=== PATIENT | male | born 1955 | race Caucasian/White ===

== ENCOUNTER 2017-10-05 05:45 | Day surgery (SDC) | payer OTHER ==
[2017-10-05] MEDS ORDERED: LIDOCAINE 1% 2 ML INJ ID PRN (06:38)
[2017-10-05] MEDS ORDERED: LR 1,000 ML IV ONE (06:38)
[2017-10-05] MEDS ORDERED: ceFAZolin 2 GM/DEXTROSE 100 ML IV ONE (06:38)
[2017-10-05] MEDS ORDERED: LIDOCAINE 2% JELLY 20 ML (UROJECT) ONE ×2 (06:48→07:17)
[2017-10-05] MEDS ORDERED: ceFAZolin 2 GM/SWFI 20 ML SYR IVP ONE (06:51)
[2017-10-05] MEDS ORDERED: ceFAZolin 2 GM/SWFI 2 GM/20 ML SYR IVP ONE (07:00)
--- NOTE | 2017-10-05 07:07 | PDANEPAE ---
ANE Past Medical History - Cardiovascular History Hx Hypertension: Yes Hx Arrhythmias: No Hx Chest Pain: No Hx Coronary Artery / Peripheral Vascular Disease: No Hx CHF / Valvular Disease: No Hx Palpitations: No - Pulmonary History Hx COPD: No Hx Asthma/Reactive Airway Disease: No Hx Recent Upper Respiratory Infection: No Hx Oxygen in Use at Home: No Hx Sleep Apnea: No Sleep Apnea Screening Result - Last Documented: Positive - Neurologic History Hx Cerebrovascular Accident: No Hx Seizures: No Hx Dementia: No - Endocrine History Hx Diabetes: No - Renal History Hx Renal Disorders: Yes Renal History Comment: UTI 07/2016. BPH. CURRENTLY SELF CATHING NEEDED - Liver History Hx Hepatic Disorders: No - Neurological & Psychiatric Hx Hx Neurological and Psychiatric Disorders: Yes Neurological / Psychiatric History Comment: ANXIETY - Cancer History Hx Cancer: No - Congenital Disorder History Hx Congenital Disorders: No - GI History Hx Gastrointestinal Disorders: Yes Gastrointestinal History Comment: HEARTBURN/REFLUX - Chronic Pain History Chronic Pain: Yes - Surgical History Prior Surgeries: LT TOTAL KNEE 07/2017. RT CATARACT ANE Review of Systems Review of Systems: - Exercise capacity METS (RN): 4 METS ANE Patient History - Allergies Allergies/Adverse Reactions: No Known Drug Allergies Allergy (Unknown, Verified 10/05/17 06:41) - Home Medications Home Medications: Atorvastatin Calcium DAILY06 09/15/17 [Last Taken 10/05/17 05:00] Flonase Nasal Mentor PRN 09/15/17 [Last Taken 09/28/17] HCTZ (*) DAILY06 09/15/17 [Last Taken 10/04/17] Ibuprofen DAILY 09/15/17 [Last Taken 10/02/17] LORAZEPAM PRN 09/15/17 [Last Taken 10/04/17] Lisinopril DAILY06 09/15/17 [Last Taken 10/05/17 05:00] Metoprolol Succinate DAILY AT 2PM 09/15/17 [Last Taken 10/04/17] Multivitamin (*) DAILY 09/15/17 [Last Taken 10/04/17] Omeprazole DAILY06 09/15/17 [Last Taken 10/05/17 05:00] - NPO status NPO Since - Liquids (Date): 10/04/17 NPO Since - Liquids (Time): 21:00 NPO Since - Solids (Date): 10/04/17 NPO Since - Solids (Time): 21:00 - Smoking Hx Smoking Status: Never smoked ANE Labs/Vital Signs - Vital Signs Blood Pressure: 139/89 Heart Rate: 70 Respiratory Rate: 16 O2 Sat (%): 94 Height: 180.34 cm Weight: 115.666 kg ANE Physical Exam - Airway Mallampati Score: Class 3 - ASA Status ASA Status: II ANE Anesthesia Plan Anesthesia Plan: general endotracheal anesthesia, GA w LMA
[2017-10-05] MEDS ORDERED: PROPOFOL 200 MG/20 ML VIAL ONE (07:12)
[2017-10-05] MEDS ORDERED: METOCLOPRAMIDE 10 MG/2 ML VIAL ONE (07:13)
[2017-10-05] MEDS ORDERED: fentaNYL 100 MCG/2 ML INJ ONE (07:13)
[2017-10-05] MEDS ORDERED: ONDANSETRON 4 MG/2 ML VIAL ONE (07:13)
[2017-10-05] MEDS ORDERED: LIDOCAINE 2% JELLY 5 ML TUBE ONE (07:43)
[2017-10-05] MEDS ORDERED: fentaNYL 100 MCG/2 ML INJ IVP PRN (08:28)
[2017-10-05] MEDS ORDERED: NALOXONE HCL 0.4 MG/ML INJ IVP PRN (08:28)
[2017-10-05] MEDS ORDERED: PROMETHAZINE HCL 25 MG/ML INJ IVP PRN (08:28)
[2017-10-05] MEDS ORDERED: LR 500 ML IV PRN (08:28)
--- NOTE | 2017-10-05 08:30 | POSTANESTH ---
Post Anesthetic Evaluation Cardiovascular Status: Normal, Stable Respiratory Status: Normal, Stable Level of Consciousness/Mental Status: Can Participate in Eval Pain Control: Adequate, Prn Tx Ordered Nausea/Vomiting Control: Adequate, Prn Tx Ordered Complications Possibly Related to Anesthesia: None Noted
--- NOTE | 2017-10-05 08:31 | PDHPUP ---
History & Physical Update H&P update statement: This history and physical update is based on an assessment of the patient which was completed after admission or registration (within 24 hours), but prior to the surgery/procedure. H&P update: no change in patient's condition since H&P completed
--- NOTE | 2017-10-05 08:37 | POSTOPPROG ---
Post Op Note Date of Operation: 10/05/17 Surgeon: Qian Horne (# [id number]) Anesthesia: LMA Pre-op Diagnosis: Bladder neck contracture Post-op Diagnosis: Bladder neck contracture Procedure: TURBNC Findings: See op note Inf/Abcess present in the surg proc area at time of surgery?: No EBL: Minimal Complications: None Specimen(s): Bladder neck
[2017-10-05 09:19] VITALS: BP 143/81
--- NOTE | 2017-10-05 12:29 | GOP ---
[f rep st] OPERATIVE REPORT DATE OF OPERATION: 10/05/2017 SURGEON: Qian Horne MD ANESTHESIA: Laryngeal mask. PREOPERATIVE DIAGNOSIS: 1. Fossa navicularis stricture. 2. Bladder neck contracture. POSTOPERATIVE DIAGNOSIS: 1. Fossa navicularis stricture. 2. Bladder neck contracture. PROCEDURE PERFORMED: 1. Urethral dilation of fossa navicularis stricture with Juan Pablo sounds. 2. Transurethral resection of bladder neck contracture. FINDINGS: 1. Mild fossa navicularis stricture. 2. Bladder neck contracture, as noted above. SPECIMENS: Bladder neck. ESTIMATED BLOOD LOSS: Minimal. INDICATIONS: This is a gentleman underwent [employer] photovaporization of the prostate previously. He has subsequently developed stricturing of the fossa navicularis, and more pertinent to the current situation, contracture of his bladder neck. He presents for operative management, particularly of the latter. The indications for the procedures, as well as potential risks and complications were discussed with the patient preoperatively. He appeared to understand, his questions were answered, and he wished to proceed. Written informed surgical consent was thereafter obtained. DESCRIPTION OF PROCEDURE: The patient was brought to the operating room, administered laryngeal mask anesthesia. He was carefully placed in the dorsal lithotomy position on the cystoscopic table. The genital area was sterilely prepped with Betadine scrub and paint, then draped in usual sterile fashion. Cystoscopy was initially performed with a 22-Bulgarian sheath and a 30-degree lens ; however, because of the fossa navicularis stricture, this required dilation of the anterior urethra carefully with Juan Pablo sounds up to 28-Bulgarian. The remainder of the anterior urethra was unremarkable. Posterior urethra revealed a well vaporized prostatic fossa, but with a bladder neck contracture that measured approximately 27-67-Txbbvn. I then removed the cystoscopic instruments and inserted the 24-Bulgarian resectoscopic sheath with visual obturator and the 30 degree lens. The beak of the scope was placed within the prostatic fossa. The IR Diagnostyx resectoscope and a Ward knife were then inserted. The Ward knife was used to make cuts through the bladder neck contracture at the 5 and 7 o'clock positions. This allowed for enough release of the bladder neck contracture that I was able to advance the scope into the bladder. The bladder was drained. The bladder was heavily trabeculated, but otherwise unremarkable. Ureteral orifices were normal in regards to shape and position along the trigone. A standard resecting loop was then used to fully resect the bladder neck contracture. All the specimen was obtained from the bladder and sent to Pathology. A button electrode was then used to fulgurate the mucosa for hemostatic purposes. At the conclusion of the procedure, the prostatic fossa and bladder neck were widely patent, ureteral orifices were preserved, and no resection and/or fulguration was performed distal to the verumontanum. The instruments were removed and an 18-Bulgarian 3-way Land catheter inserted with approximately 20 cc of sterile fluid placed in the balloon. The catheter irrigated manually and the return was clear. I decided to initiate continuous bladder irrigation for a short time postoperatively. This was connected to the catheter with normal saline. A drainage bag was connected to the catheter. The patient was then awakened, transferred to his bed, then taken to the recovery room. He tolerated the procedure well overall. COMPLICATIONS: None. DISPOSITION: He was transferred to the recovery room in stable condition. /[id number]/MODL MTDD
== END 2017-10-05 10:50 | disposition home or self-care (01) ==
LOC: FSGY 05:45
PROVIDERS: ATTEND Specialist
DX: N32.0 Bladder-neck obstruction (principal); N35.9 Urethral stricture, unspecified; N40.1 Benign prostatic hyperplasia with lower urinary tract symptoms; G62.9 Polyneuropathy, unspecified; R33.9 Retention of urine, unspecified; R39.198 Other difficulties with micturition
CPT/HCPCS: J0690; J2405; J2704; J2765; J3010

== ENCOUNTER 2018-05-28 09:46 | Observation (INO) | payer OTHER ==
--- NOTE | 2018-05-27 19:07 | GHP ---
HISTORY OF PRESENT ILLNESS: The patient is a 63-year-old male who presents with a long history of se brittany and progressive right knee pain. His pain is especially prominent in the medial compartment. Nori sims has had an injection which provided some relief, he has done some bracing. He remains an avid hike r. He has had successful replacement of his opposite knee. His left knee was replaced in July 15 in [place]. A right total knee arthroplasty is planned. PAST MEDICAL HISTORY: Remarkable for hypertension. PAST SURGICAL HISTORY: Includes cataract surgery, left total knee arthroplasty, prostate. ALLERGIES: No known drug allergies. MEDICATIONS: Include atorvastatin 40 mg p.o. daily, lisinopril 30 mg daily, hydrochlorothiazide 25 m g p.o. daily, omeprazole on a p.r.n. basis. SOCIAL HISTORY: He is a nonsmoker. REVIEW OF SYSTEMS: Positive from a cardiac standpoint for hypertension. PHYSICAL EXAM: GENERAL: The patient is a well-developed, well-nourished male in no apparent distres s. HEAD AND NECK: Normocephalic, atraumatic. CHEST: Clear. CARDIOVASCULAR: Regular rate and rhy thm. ABDOMEN: Soft. NEUROLOGICAL: He is alert and oriented x3. EXTREMITIES: Examination of the r ight knee shows a flexion contracture, he tends toward varus malalignment. He flexes to about 120 de grees. He has tenderness, especially along the medial compartment. NEUROVASCULAR: Appears intact. IMAGING STUDIES: X-rays as noted, show right knee tricompartment osteoarthritis, decreased joint spa ce, especially medial compartment, which is fdtu-mi-diks and varus malalignment. There is degenerati ve lipping, subchondral sclerosis. IMPRESSION: Severe right knee osteoarthritis. PLAN: Right total knee arthroplasty. Benefits and risks of surgery have been reviewed with the zoe ent. He understands that the risks include infection, damage to blood vessel or nerve, failure or lo osening of components and need for revision, blood clot in the leg or lungs, bleeding, and need for t ransfusion. He is already well aware of the rigorous nature of the rehabilitation. He has signed hi s consent form and wishes to proceed. /[id number]/MODL
[2018-05-28] MEDS ORDERED: ACETAMINOPHEN 325 MG TAB PO ONE (10:27)
[2018-05-28] MEDS ORDERED: ONDANSETRON 4 MG/2 ML VIAL IVP ONE (10:27)
[2018-05-28] MEDS ORDERED: ceFAZolin 2 GM/DEXTROSE 100 ML IV ONE (10:27)
[2018-05-28] MEDS ORDERED: DEXAMETHASONE 4 MG/ML VIAL IVP ONE (10:27)
[2018-05-28] MEDS ORDERED: GABAPENTIN 300 MG CAP PO ONE (10:27)
[2018-05-28] MEDS ORDERED: FAMOTIDINE 20 MG TAB PO ONE (10:27)
[2018-05-28] MEDS ORDERED: LR 1,000 ML IV ONE (10:28)
[2018-05-28] MEDS ORDERED: TRANEXAMIC ACID 2,000 MG in NS 100 ML IV ONE (11:00)
[2018-05-28] MEDS ORDERED: ROPIVACAINE 0.2% 80 MG, EPINEPHrine 0.2 MG, KETOROLAC TROMETHAMINE 30 MG in SYRINGE 0 ML IU ONE (11:00)
[2018-05-28] MEDS ORDERED: TRANEXAMIC ACID 1,000 MG in NS 100 ML IV ONE (11:00)
[2018-05-28] MEDS ORDERED: POVIDONE-IODINE 20 ML in SODIUM CL IRRIG SOLUTION 500 ML IRR ONE (11:00)
[2018-05-28] MEDS ORDERED: ceFAZolin 1 GM/5 ML SYR ONE (11:13)
[2018-05-28] MEDS ORDERED: MIDAZOLAM 2 MG/2 ML VIAL IVP ONE (11:42)
--- NOTE | 2018-05-28 11:44 | PDANEPAE ---
ANE Past Medical History - Cardiovascular History Hx Hypertension: Yes Hx Arrhythmias: No Hx Chest Pain: No Hx Coronary Artery / Peripheral Vascular Disease: No Hx CHF / Valvular Disease: No Hx Palpitations: No - Pulmonary History Hx COPD: No Hx Asthma/Reactive Airway Disease: No Hx Recent Upper Respiratory Infection: No Hx Oxygen in Use at Home: No Hx Sleep Apnea: No Sleep Apnea Screening Result - Last Documented: Positive Pulmonary History Comment: ANTHONY triggers - Neurologic History Hx Cerebrovascular Accident: No Hx Seizures: No Hx Dementia: No Neurologic History Comment: had transverse myletis as a teenager - Endocrine History Hx Diabetes: No - Renal History Hx Renal Disorders: Yes Renal History Comment: Hx UTI's. BPH, occasional self-caths - Liver History Hx Hepatic Disorders: No - Neurological & Psychiatric Hx Hx Neurological and Psychiatric Disorders: Yes Neurological / Psychiatric History Comment: ANXIETY - Cancer History Hx Cancer: No - Congenital Disorder History Hx Congenital Disorders: No - GI History Hx Gastrointestinal Disorders: Yes Gastrointestinal History Comment: GERD - Other Health History Other Health History: wears glasses for reading - Chronic Pain History Chronic Pain: No - Surgical History Prior Surgeries: TURP 09/2017. LT TOTAL KNEE 07/2017. RT CATARACT ANE Review of Systems Review of Systems: - Exercise capacity METS (RN): 4 METS ANE Patient History - Allergies Allergies/Adverse Reactions: No Known Drug Allergies Allergy (Verified 05/21/18 14:16) - Home Medications Home medications: home medication list seen and reviewed Home Medications: Atorvastatin Calcium [Lipitor 40 mg (*)] 60 mg PO DAILY #0 09/15/17 [Last Taken 10/05/17 05:00] Hydrochlorothiazide [HCTZ (*)] 25 mg PO DAILY #0 09/15/17 [Last Taken 05/27/18] Ibuprofen [Motrin (*)] 800 mg PO Q8HRS PRN #0 09/15/17 [Last Taken 1 Week Ago ~ 05/21/18] LORazepam [Ativan (*)] 0.5 mg PO HS PRN #0 09/15/17 [Last Taken 05/27/18] Lisinopril 30 mg PO DAILY #0 09/15/17 [Last Taken 1 Day Ago ~05/27/18] Multivitamins [Multivitamin (*)] 1 each PO DAILY #0 09/15/17 [Last Taken 1 Week Ago ~05/21/18] Omeprazole 20 mg PO DAILY #0 09/15/17 [Last Taken 05/28/18] Herbals/Supplements -Info Only 1 ea PO DAILY 05/16/18 [Last Taken Unknown] - NPO status NPO Status: no food or drink >8 hours NPO Since - Liquids (Date): 05/28/18 NPO Since - Liquids (Time): 07:00 NPO Since - Solids (Date): 05/27/18 NPO Since - Solids (Time): 18:00 - Smoking Hx Smoking Status: Never smoked - Family Anes Hx Family Hx Anesthesia Complications: none ANE Labs/Vital Signs - Vital Signs Vital Signs: reviewed preoperatively; see RN documention for details Blood Pressure: 115/96 Heart Rate: 68 Respiratory Rate: 18 O2 Sat (%): 96 Height: 180.34 cm Weight: 117.934 kg ANE Physical Exam - Airway Neck exam: FROM Mallampati Score: Class 2 Mouth exam: normal dental/mouth exam - Pulmonary Pulmonary: clear to auscultation - Cardiovascular Cardiovascular: regular rate and rhythym, no murmur, rub, or gallop - ASA Status ASA Status: II ANE Anesthesia Plan Anesthesia Plan: spinal Regional Anesthesia: single shot NB
--- NOTE | 2018-05-28 12:54 | PDHPUP ---
History & Physical Update H&P update statement: This history and physical update is based on an assessment of the patient which was completed after admission or registration (within 24 hours), but prior to the surgery/procedure. no change H&P update: no change in patient's condition since H&P completed (no change)
[2018-05-28] MEDS ORDERED: PROPOFOL/EMULSION 500 MG/50 ML BOTTLE IV ONE (13:05)
[2018-05-28] MEDS ORDERED: METOCLOPRAMIDE 10 MG/2 ML VIAL ONE (13:56)
[2018-05-28] MEDS ORDERED: RANITIDINE 50 MG/2 ML VIAL ONE (13:56)
[2018-05-28] MEDS ORDERED: PROPOFOL 200 MG/20 ML VIAL ONE (14:47)
[2018-05-28] MEDS ORDERED: ROPIVACAINE HCL 150 MG/30 ML INJ ONE (14:58)
[2018-05-28] MEDS ORDERED: PROMETHAZINE HCL 25 MG/ML INJ IVP PRN ×2 (15:22→15:42)
[2018-05-28] MEDS ORDERED: oxyCODONE IR 5 MG TAB PO PRN (15:22)
[2018-05-28] MEDS ORDERED: NALOXONE HCL 0.4 MG/ML INJ IVP PRN (15:22)
[2018-05-28] MEDS ORDERED: ACETAMINOPHEN 500 MG TAB PO PRN (15:22)
[2018-05-28] MEDS ORDERED: fentaNYL 100 MCG/2 ML INJ IVP PRN (15:22)
[2018-05-28] MEDS ORDERED: DEXAMETHASONE 4 MG/ML VIAL IVP PRN (15:22)
[2018-05-28] MEDS ORDERED: LR 500 ML IV PRN (15:22)
[2018-05-28] MEDS ORDERED: LABETALOL HCL 20 MG/4 ML INJ IVP PRN (15:22)
[2018-05-28] MEDS ORDERED: ALBUTEROL 3 ML DEYVIAL IH PRN (15:22)
[2018-05-28] MEDS ORDERED: HYDROmorphONE/DILAUDID 2 MG/ML INJ IVP PRN (15:22)
[2018-05-28] MEDS ORDERED: PHENYLEPHRINE HCL 100 MCG/ML SYR IVP PRN (15:22)
[2018-05-28] MEDS ORDERED: ONDANSETRON 4 MG/2 ML VIAL IVP PRN ×2 (15:22→15:42)
[2018-05-28] MEDS ORDERED: MAGNESIUM HYDROXIDE 30 ML UDCUP PO PRN (15:42)
[2018-05-28] MEDS ORDERED: ONDANSETRON DISINTEGRATING 4 MG TAB PO PRN (15:42)
[2018-05-28] MEDS ORDERED: PROMETHAZINE HCL 25 MG SUPPR PR PRN (15:42)
[2018-05-28] MEDS ORDERED: METOCLOPRAMIDE 10 MG/2 ML VIAL IVP PRN (15:42)
[2018-05-28] MEDS ORDERED: CYCLOBENZAPRINE 10 MG TAB PO PRN (15:42)
[2018-05-28] MEDS ORDERED: diphenhydrAMINE 25 MG CAP PO PRN (15:42)
[2018-05-28] MEDS ORDERED: POLYETHYLENE GLYCOL 3350 17 GM PKT PO PRN (15:42)
[2018-05-28] MEDS ORDERED: DIPHENOXYLATE/ATROPINE LOMOTIL 1 TAB PO PRN (15:42)
[2018-05-28] MEDS ORDERED: LACTULOSE 20 GM/30 ML UDCUP PO PRN (15:42)
[2018-05-28] MEDS ORDERED: TEMAZEPAM 15 MG CAP PO PRN (15:42)
[2018-05-28] MEDS ORDERED: BISACODYL 10 MG SUPP PR PRN (15:42)
[2018-05-28] MEDS ORDERED: LR 1,000 ML IV SCH (16:00)
--- NOTE | 2018-05-28 16:13 | GOP ---
DATE OF OPERATION: 05/28/2018 SURGEON: Joe Corrales MD COLD PATCHER: JUAN Hidalgo, LSBlaine. ANESTHESIOLOGIST: Joy Mcneil MD. PREOPERATIVE DIAGNOSIS: Right knee osteoarthritis. POSTOPERATIVE DIAGNOSIS: Right knee osteoarthritis. PROCEDURE PERFORMED: Right total knee arthroplasty. FINDINGS: SPECIMENS: Include excised bone. ESTIMATED BLOOD LOSS: About 50 cc. INDICATIONS: The patient is a 63-year-old male who presents with severely arthritic right knee who h as exhausted conservative measures. He has tricompartment osteoarthritis, [id number] in medial com partment and patellofemoral compartments with degenerative spurring, subchondral sclerosis, decreased joint space. DESCRIPTION OF PROCEDURE: The patient was taken to the operating room, and in the seated position Dr Sherice Mcneil provided a spinal anesthetic. He was then placed supine and he received 2 g of IV Ancef. He a lso received tranexamic acid. A blanket underneath the right hip neutralized his rotation and a tour niquet went on the upper right thigh. The right leg was prepped and draped with chlorhexidine in the usual fashion. The limb was elevated, exsanguinated, and the tourniquet inflated to 300 mmHg. I ma de a longitudinal incision in the midline, dissected through subcutaneous tissue, used a medial parap atellar arthrotomy. This was a very tight and severely arthritic knee worn in places specially media lly and patellofemoral [id number] with large bone spurs. Patella was inverted. I measured its thi ckness, removed 9 mm of cartilage and bone. I sized it a 38, drilled peg holes and made sure that th e trial component reconstituted appropriate thickness and I removed rimming osteophytes. The knee wa s flexed. I drilled a army helicopter pilot hole in the distal femur using intramedullary device for a 5-degree valg us cut. Also, he had about 10-15 degrees of flexion contracture, so I removed a +4 cut as well. I s ized the distal femur, this was a large femur, it was between an 8 and 9 size. I downsized to an 8 a nd moved the component a bit anterior to avoid notching and I completed my anterior, posterior and ca mphor cuts and the notch cuts for this bi-cruciate stabilized knee, and the size 8 trial was a good f it. I removed any osteophytes that extended beyond the component. I used an extramedullary device o n the tibia. I adjusted for rotation, posterior slope and appropriate cut depth. I made my cut. I sized the tibia at a size 7. I dialed in its rotation and completed the tibial prep. All the compon ents were removed. All the surfaces copiously jet lavaged with irrigation containing antibiotic. I cemented all 3 components. Femur was a size 8, tibia size 7, and the patella 38. After the cement h ad hardened, I did a series of trial reductions. I found the 9 mm liner allowed full extension, exce llent rollback in flexion, appropriate patellar tracking and so I inserted a 9 mm articular tray. Th e tourniquet was let down after an hour and a half. I infiltrated the tissues with a joint cocktail. I irrigated the knee with Betadine rinse as well as an antibiotic solution. The arthrotomy was siddharth sed with interrupted klprqv-qu-koetf sutures of 0 [place], subcutaneous tissue was closed with 2-0 Monocryl and the skin was closed with tricia. The wound was dressed with Betadine-soaked Adaptic, 4 x 4, sterile Webril, and a long-leg DUSTY stocking was applied. There were no complications. DRAINS: None. COUNTS: All counts were correct and the patient was taken in stable condition to recovery. My surgical pathologist was a medical necessity for this total knee replacement. SUMMARY OF COMPONENTS: This is a [employer] knee, bi-cruciate stabilized all component s cemented. The femur is Oxinium. The poly is cross-linked, the femur size 8 tibia, size 7, patella 38 and the articular insert 9 mm. /[id number]/MODL
--- NOTE | 2018-05-28 16:20 | PDMN ---
Medical Necessity Medical necessity: [facility] S700 knee arthroplasty OP: R TKA PMHx HTN,
[2018-05-28] MEDS: ACETAMINOPHEN 325 MG TAB PO SCH ×2 (18:47→23:00)
[2018-05-28] MEDS: ASPIRIN 81 MG CHEWABLE TAB PO SCH (21:18)
[2018-05-28] MEDS: SENNOSIDES/DOCUSATE SODIUM TAB PO SCH (21:18)
[2018-05-28] MEDS: FAMOTIDINE 20 MG TAB PO SCH (21:18)
[2018-05-28] MEDS: ceFAZolin 2 GM/DEXTROSE 100 ML IV SCH (21:19)
[2018-05-28] MEDS: oxyCODONE IR 5 MG TAB PO PRN (23:00)
[2018-05-29] MEDS: oxyCODONE IR 5 MG TAB PO PRN ×2 (02:47→09:15)
[2018-05-29] MEDS: ACETAMINOPHEN 325 MG TAB PO SCH ×2 (05:19→12:12)
[2018-05-29] MEDS: ceFAZolin 2 GM/DEXTROSE 100 ML IV SCH (05:20)
--- NOTE | 2018-05-29 08:11 | SOAPPROG ---
SOAP Progress Note Assessment/Plan: Assessment: 05/29/18 POD#1 R TKA, pain controlled, Hct 39, xray fine, straight cath x1- he has hx of self caths Plan: 05/29/18 08:04 PT/OT and home, celebrex, tyl, asa, oxy, has PT set up and can start in 1 wk Objective: Vital Signs Temp Pulse Resp BP Pulse Ox 36.8 C 67 17 156/88 H 93 05/29/18 04:00 05/29/18 04:00 05/29/18 04:00 05/29/18 04:00 05/29/18 04:00 Laboratory Results 05/29/18 05:10 05/28/18 05/29/18 05/30/18 05:59 05:59 05:59 Intake Total 2700 Output Total 1700 Balance 1000 ICD10 Worksheet Patient Problems: Problems Problem Status Onset Osteoarthritis of right knee Acute - ICD10 Problem Qualifiers (1) Osteoarthritis of right knee
[2018-05-29] MEDS: FAMOTIDINE 20 MG TAB PO SCH (08:48)
[2018-05-29] MEDS: SENNOSIDES/DOCUSATE SODIUM TAB PO SCH (08:48)
[2018-05-29] MEDS: ASPIRIN 81 MG CHEWABLE TAB PO SCH (08:56)
[2018-05-29] MEDS ORDERED: LISINOPRIL 20 MG TAB PO SCH (09:00)
[2018-05-29] MEDS ORDERED: ATORVASTATIN CALCIUM 40 MG TAB PO SCH (09:00)
[2018-05-29] MEDS ORDERED: PANTOPRAZOLE SODIUM 40 MG TAB PO SCH (09:00)
[2018-05-29] MEDS ORDERED: HYDROCHLOROTHIAZIDE 25 MG TAB PO SCH (09:00)
--- NOTE | 2018-05-29 11:50 | ASMTLACE ---
LACE Length of stay for Answers: 2 days current admission Acuity / Level of Answers: Yes Care: Did the patient have an inpatient admission? Comorbidities - select Answers: Other Notes: HTN: Hx of UTIs all that apply # of Emergency department Answers: 0 visits in the last 6 months Social determinants Answers: Mental health diagnosis (anxiety, depression, pers onality disorders, etc.) Score: 9 Date Signed: 05/29/2018 11:50 AM Electronically Signed By:SANIYA Hammond
--- NOTE | 2018-05-29 11:52 | ASMTCMCOM ---
CM Note CM Note Notes: Pt had planned OA of R knee. Pt to follow up with outpatient PT per MD rec. No CM d/c needs identified. Date Signed: 05/29/2018 11:51 AM Electronically Signed By:SANIYA Hammond
[2018-05-29 12:26] VITALS: BP 129/73
--- NOTE | 2018-06-11 08:33 | GDS ---
HISTORY: The patient was admitted for surgical care of his arthritic right knee. HOSPITAL COURSE: On 05/28/2018, Josue underwent a right total knee arthroplasty. The details are in t he operative note including components used and he had preoperative antibiotics. Postoperatively, he was placed on the total knee clinical pathway to include PT and OT consultation, as well as perioper ative antibiotics and DVT prophylaxis. On , his pain was controlled, hematocrit 39. X- rays looked fine. He did require straight cath x1. He does have a history of self-catheterizations. Subsequent to that, his ability to urinate returned. He did mobilize well with Physical therapy. On 05/29/2018, he was discharged home. MEDICATIONS: Include Celebrex, Tylenol, aspirin, oxycodone. He has PT set up and can start in 1 wee k. FOLLOW UP: With myself in a couple weeks. DISCHARGE DIAGNOSIS: Right knee osteoarthritis. PROCEDURE: Right total knee arthroplasty. COMPLICATIONS: None. DISPOSITION: Home. FOLLOWUP: With Dr. Corrales in 2 weeks. Medications are in the discharge. PLAN AND SPECIAL INSTRUCTIONS: He may weightbear as tolerated. Work on full range of motion. Regul ar diet. CONDITION ON DISCHARGE: Improved. /[id number]/MODL
== END 2018-05-29 13:01 | disposition home or self-care (01) ==
LOC: PREINTOOBSV 09:46 → F3N 10:14 → INTOOBSV 10:14 → OBSVTOIN 10:14 → F3N 17:37
PROVIDERS: ADMIT Orthopaedic Surgery; ATTEND Orthopaedic Surgery
PROC: 0SRC0J9 Replacement of Right Knee Joint with Synthetic Substitute, Cemented, Open Approach (ICD-10-PCS; principal; 2018-05-28 12:00)
DX: M17.11 Unilateral primary osteoarthritis, right knee (principal); I10 Essential (primary) hypertension; G47.33 Obstructive sleep apnea (adult) (pediatric); Z23 Encounter for immunization; Z96.652 Presence of left artificial knee joint
CPT/HCPCS: 27447; 73560; 90471; 97110; 97161; 97165; G0378; C1713; G0008; J0171; J0690; J1100; J1885; J2250; J2704; J2765; J2780; J2795